=== PATIENT | female | born 1975 | race Caucasian/White ===

== ENCOUNTER 2016-05-08 15:57 | Emergency (ER) | payer MEDICAID ==
[2016-05-08 16:09] VITALS: TEMP 99.3; BMI 32.8
[2016-05-08 17:30] VITALS: BP 136/91; PULSE 75
--- NOTE | 2016-05-08 17:30 | DIRPT ---
CLINICAL DATA: Two week history of cough. EXAM: CHEST 2 VIEW COMPARISON: None available. FINDINGS: The cardiac silhouette, mediastinal and hilar contours are within normal limits. The lungs are clear of acute process. Vague bilateral densities are likely remote healed rib fractures. No pleural effusion. The bony thorax is intact. IMPRESSION: No acute pulmonary findings. Bilateral lung densities are likely healed rib fractures. Recommend clinical correlation. If no history of prior rib fractures recommend follow-up chest x-ray in 4-6 weeks. Electronically Signed By: Eva Bowman M.D. On: 05/08/2016 17:25
== END 2016-05-08 18:10 | disposition left against medical advice (07) ==
LOC: ED 15:57
DX: R05 Cough (principal)
CPT/HCPCS: 71020; 87804; 99281; 99283